=== PATIENT | female | born 2005 | race Caucasian/White ===

== ENCOUNTER 2024-09-17 02:54 | Emergency (ER) | payer OTHER, SELFPAY ==
[2024-09-17 02:56] VITALS: BP 99/70
[2024-09-17 03:14] VITALS: BMI 21.1
[2024-09-17 03:37] LABS: % Basophils 0.8 % (0-2); % Eosinophils 2.1 % (0-6); % Immature Granulocytes 0.3 % (0-0.5); % Lymphocytes 26.1 % (20.5-51.1); % Monocytes 16.4 % (1.7-9.3); % Neutrophils 54.3 % (42.2-75.2); Absolute Eosinophils 0.1 10^3/uL (0-0.7); Absolute Monocytes 0.6 10^3/uL (0.1-0.6); Absolute Neutrophils 2.1 10^3/uL (1.4-6.5); Hematocrit 35.9 % (37.0-47.0); Hemoglobin 12.2 g/dL (12.0-16.0); Mean Corpuscular Hgb 28.8 pg (27.0-31.0); Mean Corpuscular Volume 84.7 fL (81.0-99.0); Mean Platelet Volume 11.1 fL (7.4-10.4); Nucleated Red Blood Cells % 0 %; Platelet Count 148 10^3/uL (130-400); Red Blood Cell Count 4.24 10^6/uL (4.20-5.40); Red Cell Dist. Width 13.4 % (11.5-14.5); White Blood Cell Count 3.8 10^3/uL (4.8-10.8)
[2024-09-17 03:52] LABS: COVID-19 Antigen Negative (Negative)
[2024-09-17 04:01] LABS: ALT (SGPT) 20 U/L (0-35); AST (SGOT) 25 U/L (14-36); Albumin 3.9 g/dl (3.5-5.0); Alkaline Phosphatase 58 U/L (38-126); Blood Urea Nitrogen 8 mg/dl (7-17); Carbon Dioxide 25 mmol/L (22-30); Chloride 108 mmol/L (98-107); Estimated Creatinine Clearance 116 ml/min; Glucose 95 mg/dl (70-99); Potassium 3.8 mmol/L (3.5-5.1); Sodium 141 mmol/L (135-145); Total Bilirubin 0.4 mg/dl (0.2-1.3); Total Protein 6.5 g/dl (6.3-8.2); eGFR > 60.00
[2024-09-17 04:08] LABS: HCG, Serum Qualitative Screen Negative
[2024-09-17 04:12] LABS: Monotest Negative (Negative)
--- NOTE | 2024-09-17 04:18 | ED.GENMED ---
History of Present Illness
General
Chief Complaint: Headache
Source: patient
Exam Limitations: none
Time Seen by Provider: 09/17/24 03:36
Nursing documentation reviewed up to this point in time: agreed with
History of Present Illness
History of Present Illness:
see MDM
Past History
Past History
ED Past Medical History: None
ED Past Surgical History: None
Social History
Tobacco: Non-smoker
Alcohol: None
Drug: None
Review of Systems
Review of Systems
Allergies reviewed?: Yes
All Other Systems: Not applicable
Phy Exam
Physical Exam
Physical Exam:
GENERAL: Alert , in no apparent distress
HEAD: NCAT
EYE: pupils equal and reactive, no nystagmus, photophobia
clear tearing R eye
NECK: Supple,full rom, nontender
ENT: o/p clr, mmm.
CARDIAC: Regular rate and rhythm . no edema
LUNGS: Clear breath sounds bilaterally, no acute respiratory distress, no wheezes/rales/rhonchi
ABDOMEN: Soft, without focal tenderness, no r/g, no cvat
NEUROLOGICAL: Alert and orientedx 4, cn intact, flattening of forehead, weak R facial muscles; cannot close R eye, cannot elevate R corner of mouth;, 5/5 strength in UE/LE, sensation intact, romberg neg, ambulates without assistance, neg pronator
drift
SKIN: Warm and dry, skin intact.
MUSCULOSKELETAL: No edema, well perfused.
PSYCH: Normal and appropriate interaction.
Sepsis
Sepsis Screening
Sepsis Assessment: Sepsis Ruled Out
Sepsis Screen
Sepsis Screen: Sepsis Ruled Out
Date: 09/18/24
Time: 08:37
Course
Orders/Labs/Results
Orders:
Orders
09/17/24 03:25
CMP [Comprehensive Metabolic Panel] Urgent
COVID-19 Antigen Urgent
Source: Nasal Swab
Complete Blood Count/With Diff Urgent
HCG, Serum Qualitative Screen Urgent
Comment: ADD ON
Lyme Progressive Urgent
Comment: ADD ON
Monotest Urgent
Comment: ADD ON
Influenza A+B Rapid Molecular Urgent
DINA Source: Nasal Swab
Specimen Description:
09/17/24 03:55
Add On- LAB Urgent
Tests Added?: mono, lyme progressive, hcg serum qual
09/17/24 03:56
CT Head & Neck Angio W/wo IV Urgent
Comment:
Reason For Exam: R facial droop after cervical adjustment
0.9% Sodium Chloride 1000 ml [Nss] 1,000 ml IV BOLUS
Diphenhydramine [Benadryl] 25 mg IV NOW STA
Metoclopramide [Reglan] 10 mg IV NOW STA
09/17/24 05:47
Doxycycline [Vibramycin] 100 mg PO NOW STA
Ketorolac [Toradol] 15 mg IV NOW STA
Ketorolac [Toradol] 30 mg IV NOW STA
Prednisone [Deltasone] 50 mg PO NOW STA
09/17/24 06:26
Acetaminophen [Tylenol] 1,000 mg PO NOW STA
Abnormal Lab Results
09/17/24
03:25
WBC 3.8 L 10^3/uL
(4.8-10.8)
Hct 35.9 L %
(37.0-47.0)
MPV 11.1 H fL
(7.4-10.4)
Absolute Lymphs (auto) 1.0 L 10^3/uL
(1.2-3.4)
Monocytes % 16.4 H %
(1.7-9.3)
Chloride 108 H mmol/L
(98-107)
09/17/24 03:25
09/17/24 03:25
Vital Signs
Initial and Last Documented VS:
Initial Vital Signs
Temp Pulse Resp BP Pulse Ox
37.4 C 93 16 99/70 100
09/17/24 02:56 09/17/24 02:56 09/17/24 02:56 09/17/24 02:56 09/17/24 02:56
Last Documented Vital Signs
Temp Pulse Resp BP Pulse Ox
37.0 C 82 20 126/82 98
09/17/24 08:30 09/17/24 08:30 09/17/24 08:30 09/17/24 08:30 09/17/24 08:30
MDM/Problems Addressed
Differential Diagnosis Includes:
bells, dissection, lyme disease, viral syndrome
MDM/Problems Addressed:
Note:
CHIEF COMPLAINT(S)
Right-sided headache and facial numbness.
HISTORY OF PRESENT ILLNESS
The patient is a 18-year-old female with no prior history of migraines who presents with a right-sided headache that began three days ago while sleeping at a friends house. The headache was centered around the right eye and eventually spread to
include the back of the skull. The pain is exacerbated by movement and is accompanied by photophobia. The patient initially managed the symptoms with [id number] medications and visited a chiropractor on Saturday. Post adjustment, the patient
experienced transient relief followed by recurrence of symptoms of the headache. On Saturday night, the patient developed a fever of 101�F. The patient visited a family physician on Saturday and was prescribed Sumatriptan, and the thought was that
she had a viral syndrome as well as a migraine.
later on int evening she noticed facial numbness, particularly in the right eyebrow region. lower extremity joint pain, and ongoing neck discomfort at the base of the skull on the right side. The patient denies prior history of similar
headaches.
The patient reports having had a deer tick removed from the body but did not identify a rash or more ticks. A viral etiology for Summit palsy is being considered, aggravated potentially by Lyme disease due to tick exposure. Recent neurological
symptoms include visual disturbance in the right eye due to excessive tearing.
SOCIAL HISTORY
The patient is a community college student. No smoking or drug use reported.
PHYSICAL EXAM
- Head and Neck:
- Right-sided facial droop consistent with Summit Palsy. involving forehead, R eye, and cannot elevate R cornder of mouth
- Visual tearing noted in right eye. Difficulty closing right eye fully.
- Neck tenderness at the base of the skull on the right side.
- Neurological:
- Coordination intact with [id number] testing.
Nursing notes reviewed and vital signs reviewed.
PROBLEM LIST
Acute:
- Right-sided headache with photophobia and nausea.
- Fever.
- Facial numbness and right-sided facial droop.
PLAN
- Order a computed tomography scan of the head and neck with intravenous contrast to evaluate for cranial vascular issues possibly related to chiropractic cervical manipulation.
- Administer intravenous fluids and pain management including migraine treatment with Reglan (Metoclopramide) and Benadryl (Diphenhydramine) to mitigate side effects.
- Initiate serologic testing for Lyme disease considering tick exposure and start doxycycline antibiotic therapy preemptively given the clinical suspicion.
- Monitor patient response to medication while awaiting Lyme test results, which may take several days.
DIFFERENTIAL DIAGNOSIS
The Differential Diagnosis includes, in no particular order and is not limited to:
1. Migraine headache.
2. Summit Palsy.
3. Cervical artery dissection potentially due to chiropractic manipulation.
4. Lyme disease.
5. Viral infection leading to Summit palsy.
6. Trigeminal neuralgia.
7. Sinusitis.
8. Cluster headache.
9. Intracranial hemorrhage.
10. Meningitis.
pt felt better after meds; she did spike temp and was given tylenol
headache 2/10
d/w neuro who recommended the steroids and covering with doxy for presumptive lyme disease
d/w ed attending who also agree; will hold on valacyclovir in settting of recent tick exposure but will give course steroids
eye lubricant
taping eye at night
f/u with pcp
*Critical Care Note
Total Time (30-74mins, 75-104mins- exclusive of procedures): Not Applicable
ED Attending Note
-
Portions of this chart may have been created with voice recognition software.� Occasional wrong word or��sound alike� substitutions may have occurred due to the inherent limitations of voice recognition software.
Discharge Plan
Departure
Patient Disposition: Home (Routine Discharge)
Date of Disposition: 09/17/24
Time of Disposition: 08:23
Patient with high blood pressure during this ER visit?: No
Condition: Fair
Covid-19: Not Applicable
Discharge Problem:
Rudd's palsy, Fever
Instructions: Rudd's palsy, Headache, Adult (DC)
Prescriptions:
New
doxycycline hyclate 100 mg capsule
100 mg PO BID 21 Days Qty: 42 0RF
prednisone 50 mg tablet
50 mg PO DAILY Qty: 4 0RF
No Action
prednisone 20 mg tablet
20 mg PO BID Qty: 10 0RF
ascorbic acid (vitamin C) [Vitamin C] 1,000 mg Tablet
1,000 mg PO BID Qty: 56 0RF
Rx Instructions:
Take 1,000 mg twice a day for 14 days
famotidine [Pepcid] 20 mg Tablet
20 mg PO BID Qty: 28 0RF
Rx Instructions:
Take 20 mg twice a day for 14 days
aspirin [Aspirin Childrens] 81 mg Tablet,Chewable
81 mg PO DAILY Qty: 14 0RF
Rx Instructions:
Take 81 mg daily for 14 days
zinc sulfate 50 mg zinc (220 mg) Capsule
50 mg PO DAILY Qty: 14 0RF
Rx Instructions:
Take 220 mg daily for 14 days
cholecalciferol (vitamin D3) [Vitamin D3] 25 mcg (1,000 unit) Tablet
50 mcg PO DAILY Qty: 28 0RF
Rx Instructions:
Take 2,000 units daily for 14 days
melatonin 5 mg Tablet
5 mg PO HS Qty: 14 0RF
Rx Instructions:
Take 5 mg daily at bedtime for 14 days
ondansetron 8 mg tablet,disintegrating
8 mg PO TID PRN (Reason: nausea and vomiting) Qty: 30 0RF
clindamycin HCl 150 mg capsule
450 mg PO TID 5 Days Qty: 45 0RF
Referrals:
UNKNOWN - PT DOES,NOT KNOW [Family Provider]
Activity Restrictions/Additional Instructions:
You have a Rudd's palsy which is a facial nerve inflammation, is commonly caused by a virus but it could be caused by Lyme disease. You are starting you on doxycycline which she should take twice a day for the next 21 days. this sometimes causes
stomach upset
you can try it with food in your stomach first and then take it OR try it on an empty stomach and drink 12 oz of water and then wait 45 minutes before eating anything
also take prednisone 50 mg once a day for 4 mor days starting tomorrow for nerve inflammation
the lyme test is pending
take tylenol for your fever/headaches
you can also take motrin
your cat scan was negative for any problems with your vasculature from the cervical manipulation.
You need to absolutely be seen by your family doctor in the next 2 to 4 days for follow-up. Return to the ER for neck stiffness, severe fever or headache, chest pain, passing out, confusion, rash etc.
Interventions
Interventions:
*Risk Screen - Suicide Last Done: 09/17/24 02:56
*General Assessment Last Done: 09/17/24 03:14
*Neglect/Abuse Screening Last Done: 09/17/24 03:14
*ED- Fall Risk Assessment Last Done: 09/17/24 03:14
*ED COVID-19 Vaccine History Last Done: 09/17/24 08:30
*Nursing Disposition Last Done: 09/17/24 08:30
ED- Neurological Assessment Last Done: 09/17/24 05:04
Discharge Date and Time
Discharge Date/Time: 09/17/24 08:34
Print Language: SPANISH
[2024-09-17] MEDS: REGLAN 10 MG IV (04:20)
[2024-09-17] MEDS: BENADRYL 25 MG IV (04:20)
[2024-09-17] MEDS: NSS 1000 IV (04:20)
[2024-09-17] MEDS: TORADOL 15 MG IV (06:16)
[2024-09-17] MEDS: DELTASONE 50 MG PO (06:16)
[2024-09-17] MEDS: VIBRAMYCIN 100 MG PO (06:16)
[2024-09-17 06:20] VITALS: BP 113/74
[2024-09-17] MEDS: TYLENOL 1000 MG PO (06:30)
[2024-09-17 08:30] VITALS: BP 126/82
[2024-09-17 13:43] LABS: Lyme Antibody Screen, EIA Negative (Negative)
== END 2024-09-17 08:34 | disposition home or self-care (01) ==
LOC: EMR 02:54
PROVIDERS: EMERGENCY PHYSICIAN Emergency Medicine
DX: G51.0 Bell's palsy (principal); R50.9 Fever, unspecified; R51.9 Headache, unspecified; Z11.52 Encounter for screening for COVID-19
CPT/HCPCS: 96374; 96375; 96361; 99284; 70496; 70498; 80053; 84703; 85025; 86308; 86618; 87502; 87811; Q9967